=== PATIENT | male | born 1975 | race American Indian/Alaskan Native ===

== ENCOUNTER 2016-06-12 13:08 | Emergency (ER) | payer SELFPAY ==
[2016-06-12 14:04] VITALS: BP 140/87
[2016-06-12] MEDS ORDERED: TORADOL IM ONE (15:54)
--- NOTE | 2016-06-12 15:55 | Emergency Department Report ---
ED Upper Extremity Inj HPI - General Chief Complaint: Extremity Injury, Upper Stated Complaint: RT ARM INJURY Time Seen by Provider: 06/12/16 15:53 Source: patient Mode of arrival: Ambulatory Limitations: No Limitations - History of Present Illness Initial Comments: Patient reports while he was sitting in the physician waiting room the ceiling collapse striking him on his right shoulder. He denies LOC MD Complaint: Injury to:: right, shoulder Onset/Timin -: hour(s) Other Extremity Injury: Shoulder: Right Other Injuries: none Handedness: right Place: other (physician's office) Severity scale (0 -10): 8 Improves With: rest Worsens With: movement of extremity Context: direct blow Associated Symptoms: denies other symptoms. denies: weakness, numbness, neck pain, suspects foreign body, nausea/vomiting, heard/felt popping sensat Treatments Prior to Arrival: other (none) - Related Data Previous Rx's Medication Instructions Recorded Last Taken Type Ibuprofen [Motrin 800 MG tab] 800 mg PO Q8HR PRN #30 tablet 06/12/16 Unknown Rx Allergies Allergy/AdvReac Type Severity Reaction Status Date / Time No Known Allergies Allergy Verified 06/12/16 14:00 ED Review of Systems ROS: Stated complaint: RT ARM INJURY Other details as noted in HPI Respiratory: denies: cough, orthopnea, shortness of breath, SOB with exertion, SOB at rest, stridor, wheezing Cardiovascular: denies: chest pain, palpitations, dyspnea on exertion, orthopnea , edema, syncope, paroxysmal nocturnal dyspnea Gastrointestinal: denies: abdominal pain, nausea, vomiting, diarrhea, constipation Musculoskeletal: arthralgia (right shoulder). denies: back pain, joint swelling , myalgia Neurological: denies: headache, weakness, numbness, paresthesias, confusion, abnormal gait, vertigo Hematological/Lymphatic: denies: easy bleeding, easy bruising, swollen glands ED Past Medical Hx - Past Medical History Previous Medical History?: No - Surgical History Past Surgical History?: No - Social History Smoking Status: Never Smoker Substance Use Type: None - Medications Home Medications: Home Medications Medication Instructions Recorded Confirmed Last Taken Type Ibuprofen [Motrin 800 MG tab] 800 mg PO Q8HR PRN #30 tablet 06/12/16 Unknown Rx ED Physical Exam - General Limitations: No Limitations General appearance: alert, in no apparent distress - Head Head exam: Present: atraumatic - Eye Eye exam: Present: normal appearance Pupils: Present: normal accommodation - ENT ENT exam: Present: normal exam, mucous membranes moist - Neck Neck exam: Present: normal inspection, full ROM. Absent: tenderness, meningismus, lymphadenopathy, thyromegaly - Respiratory Respiratory exam: Present: normal lung sounds bilaterally. Absent: respiratory distress, wheezes, rales, rhonchi, stridor, chest wall tenderness, accessory muscle use - Cardiovascular Cardiovascular Exam: Present: regular rate, normal rhythm, normal heart sounds. Absent: systolic murmur, diastolic murmur, rubs, gallop, clicks, JVD, S3, S4 - GI/Abdominal GI/Abdominal exam: Present: soft, normal bowel sounds. Absent: distended, tenderness, guarding, rebound, rigid - Expanded Upper Extremity Exam Right Shoulder Exam: Present: normal inspection, full ROM, tenderness (with palpation) . Absent: swelling, abrasion, laceration, ecchymosis, crepidus, dislocation, erythema, tenderness over AC joint Upper Arm exam: Present: normal inspection, full ROM. Absent: tenderness, swelling, abrasion, laceration, ecchymosis, deformity, crepidus, dislocation, erythema Neuro motor exam: Present: wrist extension intact, thumb opposition intact, thumb IP flexion intact, thumb adduction intact, fingers 2-5 abduction intact Neurosensory exam: Present: 2-point discrimination, radial nerve intact, ulnar nerve intact, median nerve intact Vascular: Present: normal capillary refill, radial pulse (2+), brachial pulse (2 +), ulnar pulse (2+). Absent: vascular compromise, Pallo, pulse deficit radial art, pulse deficit ulnar art, pulse deficit brachial art - Back Exam Back exam: Present: normal inspection, full ROM. Absent: tenderness, CVA tenderness (R), CVA tenderness (L), muscle spasm, paraspinal tenderness, vertebral tenderness - Neurological Exam Neurological exam: Present: alert, oriented X3, CN II-XII intact, normal gait, reflexes normal. Absent: motor sensory deficit - Psychiatric Psychiatric exam: Present: normal affect, normal mood - Skin Skin exam: Present: warm, dry, intact, normal color. Absent: rash ED Course Vital Signs 06/12/16 13:56 Temperature 98.3 F Pulse Rate 88 Respiratory 17 Rate Blood Pressure 140/87 O2 Sat by Pulse 97 Oximetry - Reevaluation(s) Reevaluation #1: 06/12/16 16:04 radiology study and analgesic ordered ED Medical Decision Making - Radiology Data Radiology results: image reviewed RIGHT SHOULDER: Routine views demonstrate normal bony and soft tissue structures with normal joint alignment of the shoulder. IMPRESSION: Normal study. - Medical Decision Making During the course of ED, analgesic and radiology study were ordered. The imaging study revealed normal study. He was sent home with prescriptions for Ibuprofen, instructed to follow up with the selective referral given at discharge, he verbalized understanding - Differential Diagnosis Right Shoulder Pain, Right Shoulder Fracture Critical care attestation.: If time is entered above; I have spent that time in minutes in the direct care of this critically ill patient, excluding procedure time. ED Disposition Clinical Impression: Right shoulder pain Qualifiers: Chronicity: acute Qualified Code(s): M25.511 - Pain in right shoulder Disposition: DISCHARGED TO HOME OR SELFCARE Is pt being admited?: No Does the pt Need Aspirin: No Condition: Stable Instructions: Arthralgia (ED) Additional Instructions: Tale medication as directed. Follow up with the selective referral given at discharge Prescriptions: Ibuprofen [Motrin 800 MG tab] 800 mg PO Q8HR PRN #30 tablet PRN Reason: Pain Referrals: PRIMARY CAREMD [Primary Care Provider] - 3-5 Days JENIFFER BENTON MD [Staff Physician] - 3-5 Days Forms: Work/School Release Form(ED) Time of Disposition: 17:11
--- NOTE | 2016-06-12 16:51 | XRay Report ---
RIGHT SHOULDER: Routine views demonstrate normal bony and soft tissue structures with normal joint alignment of the shoulder. IMPRESSION: Normal study.
== END 2016-06-12 17:20 | disposition home or self-care (01) ==
LOC: ED 13:08
DX: M25.511 Pain in right shoulder (principal); W22.8XXA Striking against or struck by other objects, initial encounter; Y93.89 Activity, other specified; Y99.9 Unspecified external cause status; Y92.89 Other specified places as the place of occurrence of the external cause
CPT/HCPCS: 73030; 96372; 99283; J1885

== ENCOUNTER 2016-08-18 19:56 | Emergency (ER) | payer SELFPAY ==
[2016-08-18 20:21] VITALS: BP 148/85
[2016-08-18 20:37] LABS: Basophils % (Auto) 0.8 % (0.0-1.8); Eosinophils % (Auto) 3.9 % (0.0-4.3); Hematocrit 42.8 % (35.5-45.6); Hemoglobin 13.8 gm/dl (11.8-15.2); Mean Corpuscular HGB Conc 32 % (32-34); Mean Corpuscular Hemoglobin 26 pg (28-32); Mean Corpuscular Volume 80 fl (84-94); Platelet Count 311 K/mm3 (140-440); Red Blood Count 5.32 M/mm3 (3.65-5.03); Red Cell Distribution Width 14.1 % (13.2-15.2); White Blood Count 9.1 K/mm3 (4.5-11.0)
[2016-08-18 20:53] LABS: Anion Gap 19 mmol/L; Blood Urea Nitrogen 13 mg/dL (9-20); Carbon Dioxide 26 mmol/L (22-30); Chloride 103.8 mmol/L (98-107); Glucose 131 mg/dL (75-100); Potassium 4.3 mmol/L (3.6-5.0); Sodium 144 mmol/L (137-145)
--- NOTE | 2016-08-21 10:06 | ED Elopement Review ---
ED Pt Elopement review - Results review Lab results: Laboratory Tests 08/18/16 08/18/16 20:23 20:23 WBC 9.1 RBC 5.32 H Hgb 13.8 Hct 42.8 MCV 80 L MCH 26 L MCHC 32 RDW 14.1 Plt Count 311 Lymph % (Auto) 28.3 [place] % (Auto) 8.9 H Eos % (Auto) 3.9 Baso % (Auto) 0.8 Lymph # 2.6 [place] # 0.8 Eos # 0.4 Baso # 0.1 Seg Neutrophils % 58.1 Seg Neutrophils # 5.3 Sodium 144 Potassium 4.3 Chloride 103.8 Carbon Dioxide 26 Anion Gap 19 BUN 13 Creatinine 1.0 Estimated GFR > 60 BUN/Creatinine Ratio 13.00 Glucose 131 H Calcium 9.0 Troponin T < 0.010 - Call Back decision Pt Call Back Decision: No action required
== END 2016-08-18 22:15 | disposition left against medical advice (07) ==
LOC: ED 19:56
DX: R07.9 Chest pain, unspecified (principal); Z53.21 Procedure and treatment not carried out due to patient leaving prior to being seen by health care provider
CPT/HCPCS: 36415; 80048; 84484; 85025; 93005; 93010

== ENCOUNTER 2016-08-22 19:21 | Emergency (ER) | payer SELFPAY ==
[2016-08-22 20:23] LABS: Basophils % (Auto) 0.7 % (0.0-1.8); Eosinophils % (Auto) 2.6 % (0.0-4.3); Hematocrit 42.8 % (35.5-45.6); Hemoglobin 13.7 gm/dl (11.8-15.2); Mean Corpuscular HGB Conc 32 % (32-34); Mean Corpuscular Volume 80 fl (84-94); Platelet Count 337 K/mm3 (140-440); Red Blood Count 5.33 M/mm3 (3.65-5.03); Red Cell Distribution Width 14.1 % (13.2-15.2); White Blood Count 11.6 K/mm3 (4.5-11.0)
[2016-08-22 20:30] LABS: Anion Gap 19 mmol/L; BUN/Creatinine Ratio 12.22; Blood Urea Nitrogen 11 mg/dL (9-20); Calcium 9.1 mg/dL (8.4-10.2); Carbon Dioxide 25 mmol/L (22-30); Chloride 103.6 mmol/L (98-107); Glucose 87 mg/dL (75-100); Sodium 144 mmol/L (137-145)
[2016-08-22 20:40] LABS: Mean Corpuscular Hemoglobin 26 pg (28-32)
[2016-08-23] MEDS ORDERED: ROBITUSSIN AC PO ONE (04:15)
[2016-08-23] MEDS ORDERED: DUONEB 0.5 MG-3 MG/3 ML SOLN IH ONE (04:15)
--- NOTE | 2016-08-23 06:20 | Emergency Department Report ---
ED General Adult HPI - General Chief complaint: Chest Pain Stated complaint: CHEST PAIN/COUGH Time Seen by Provider: 08/23/16 06:15 Source: patient Mode of arrival: Ambulatory Limitations: No Limitations - History of Present Illness Initial comments: Patient presents with a history of cough productive of INTERMITTENT YELLOW SPUTUM FOR THE PAST 2 WEEKS HE STATES HE OCCASIONALLY WHEEZES. HE STATES THE SUBSTERNAL AREA OF HIS CHEST IS SORE WHEN HE COUGHS. He denies fever or chills. He denies any leg swelling or pain or recent travel. He is not suffering from chest pain at this time. He states he is given a neb prior to my arrival in the emergency department which was of benefit. He does not have a history of asthma or COPD. At this time he sitting in a chair he is asymptomatic. He denies chest pain. -: week(s) Location: chest Radiation: non-radiation Severity scale (0 -10): 6 Quality: aching Consistency: intermittent Improves with: none Worsens with: none Associated Symptoms: other - Related Data Previous Rx's Medication Instructions Recorded Last Taken Type Ibuprofen [Motrin 800 MG tab] 800 mg PO Q8HR PRN #30 tablet 06/12/16 Unknown Rx Albuterol Sulfate [Ventolin HFA] 2 puff IH Q4H PRN #1 hfa.aer.ad 08/23/16 Unknown Rx Azithromycin [Zithromax Z-CARLOS MANUEL] 250 mg PO DAILY #6 tablet 08/23/16 Unknown Rx Benzonatate [Tessalon Perles] 100 mg PO Q8HR #14 capsule 08/23/16 Unknown Rx amLODIPine [Norvasc] 5 mg PO DAILY #30 tab 08/23/16 Unknown Rx Allergies Allergy/AdvReac Type Severity Reaction Status Date / Time No Known Allergies Allergy Verified 06/12/16 14:00 ED Review of Systems ROS: Stated complaint: CHEST PAIN/COUGH Other details as noted in HPI Constitutional: denies: chills, fever Eyes: denies: eye pain, eye discharge, vision change ENT: denies: ear pain, throat pain Respiratory: cough. denies: shortness of breath, wheezing Cardiovascular: chest pain. denies: palpitations Endocrine: no symptoms reported Gastrointestinal: denies: abdominal pain, nausea, diarrhea Genitourinary: denies: urgency, dysuria Musculoskeletal: denies: back pain, joint swelling, arthralgia Skin: denies: rash, lesions Neurological: denies: headache, weakness, paresthesias Psychiatric: denies: anxiety, depression Hematological/Lymphatic: denies: easy bleeding, easy bruising ED Past Medical Hx - Past Medical History Previous Medical History?: No Hx Hypertension: Yes - Surgical History Past Surgical History?: No - Social History Smoking Status: Never Smoker Substance Use Type: None - Medications Home Medications: Home Medications Medication Instructions Recorded Confirmed Last Taken Type Ibuprofen [Motrin 800 MG tab] 800 mg PO Q8HR PRN #30 tablet 06/12/16 Unknown Rx Albuterol Sulfate [Ventolin HFA] 2 puff IH Q4H PRN #1 hfa.aer.ad 08/23/16 Unknown Rx Azithromycin [Zithromax Z-CARLOS MANUEL] 250 mg PO DAILY #6 tablet 08/23/16 Unknown Rx Benzonatate [Tessalon Perles] 100 mg PO Q8HR #14 capsule 08/23/16 Unknown Rx amLODIPine [Norvasc] 5 mg PO DAILY #30 tab 08/23/16 Unknown Rx ED Physical Exam - General Limitations: No Limitations General appearance: alert, in no apparent distress - Head Head exam: Present: atraumatic, normocephalic - Eye Eye exam: Present: normal appearance. Absent: scleral icterus - ENT ENT exam: Present: mucous membranes moist - Neck Neck exam: Present: normal inspection - Respiratory Respiratory exam: Present: normal lung sounds bilaterally. Absent: respiratory distress - Cardiovascular Cardiovascular Exam: Present: regular rate, normal rhythm. Absent: systolic murmur, diastolic murmur, rubs, gallop - GI/Abdominal GI/Abdominal exam: Present: soft, normal bowel sounds. Absent: distended, tenderness, guarding, rebound, rigid - Rectal Rectal exam: Present: deferred - Extremities Exam Extremities exam: Present: normal inspection - Back Exam Back exam: Present: normal inspection - Neurological Exam Neurological exam: Present: alert, oriented X3, CN II-XII intact. Absent: motor sensory deficit - Psychiatric Psychiatric exam: Present: normal affect, normal mood - Skin Skin exam: Present: warm, dry, intact, normal color. Absent: rash ED Course Vital Signs 08/22/16 08/23/16 08/23/16 19:43 02:05 03:40 Temperature 98.6 F 98.7 F 98.3 F Pulse Rate 96 H 98 H 109 H Pulse Rate [ Posterior Bilateral] Respiratory 20 18 16 Rate Respiratory Rate [Posterior Bilateral] Blood Pressure 158/104 163/101 Blood Pressure 158/104 199/96 [Right] O2 Sat by Pulse 95 98 98 Oximetry 08/23/16 08/23/16 08/23/16 05:30 05:43 06:35 Temperature 97.9 F Pulse Rate 102 H Pulse Rate [ 105 H 102 H Posterior Bilateral] Respiratory 14 Rate Respiratory 18 18 Rate [Posterior Bilateral] Blood Pressure Blood Pressure 173/95 [Right] O2 Sat by Pulse 92 Oximetry ED Medical Decision Making - Lab Data Result diagrams: 08/22/16 19:59 08/22/16 19:59 Laboratory Results - last 24 hr 08/22/16 08/22/16 08/22/16 19:59 19:59 23:11 WBC 11.6 H RBC 5.33 H Hgb 13.7 Hct 42.8 MCV 80 L MCH 26 L MCHC 32 RDW 14.1 Plt Count 337 Lymph % (Auto) 29.6 [place] % (Auto) 8.7 H Eos % (Auto) 2.6 Baso % (Auto) 0.7 Lymph # 3.4 [place] # 1.0 H Eos # 0.3 Baso # 0.1 Seg Neutrophils % 58.4 Seg Neutrophils # 6.8 Sodium 144 Potassium 4.0 Chloride 103.6 Carbon Dioxide 25 Anion Gap 19 BUN 11 Creatinine 0.9 Estimated GFR > 60 BUN/Creatinine Ratio 12.22 Glucose 87 Calcium 9.1 Troponin T < 0.010 < 0.010 08/23/16 02:11 WBC RBC Hgb Hct MCV MCH MCHC RDW Plt Count Lymph % (Auto) [place] % (Auto) Eos % (Auto) Baso % (Auto) Lymph # [place] # Eos # Baso # Seg Neutrophils % Seg Neutrophils # Sodium Potassium Chloride Carbon Dioxide Anion Gap BUN Creatinine Estimated GFR BUN/Creatinine Ratio Glucose Calcium Troponin T < 0.010 - EKG Data -: EKG Interpreted by Me EKG shows normal: sinus rhythm, axis, intervals, QRS complexes, ST-T waves Rate: normal - EKG Data Interpretation: no acute changes - Radiology Data interpreted by me: CXR NAF Critical care attestation.: If time is entered above; I have spent that time in minutes in the direct care of this critically ill patient, excluding procedure time. ED Disposition Clinical Impression: Acute bronchitis Qualifiers: Bronchitis organism: unspecified organism Qualified Code(s): J20.9 - Acute bronchitis, unspecified Reactive airway disease Qualifiers: Asthma severity: mild intermittent Asthma complication type: uncomplicated Qualified Code(s): J45.20 - Mild intermittent asthma, uncomplicated Chest pain Qualifiers: Chest pain type: unspecified Qualified Code(s): R07.9 - Chest pain, unspecified Hypertension Qualifiers: Hypertension type: essential hypertension Qualified Code(s): I10 - Essential ( primary) hypertension Disposition: TO HOME OR SELFCARE Is pt being admited?: No Does the pt Need Aspirin: No Condition: Stable Instructions: Acute Bronchitis (ED), Chest Pain (ED), Noncardiac Chest Pain (ED ), Hypertension (ED) Additional Instructions: Return any acute change or problem. Follow-up with the primary care provider. Rx as directed. Prescriptions: Albuterol Sulfate [Ventolin HFA] 2 puff IH Q4H PRN #1 hfa.aer.ad PRN Reason: Shortness Of Breath amLODIPine [Norvasc] 5 mg PO DAILY #30 tab Azithromycin [Zithromax Z-CARLOS MANUEL] 250 mg PO DAILY #6 tablet Benzonatate [Tessalon Perles] 100 mg PO Q8HR #14 capsule Referrals: PRIMARY CARE, [Primary Care Provider] - 3-5 Days Time of Disposition: 06:52
[2016-08-23 06:36] VITALS: BP 173/95
--- NOTE | 2016-08-23 07:18 | XRay Report ---
ROUTINE CHEST, TWO VIEWS: HISTORY: chest pain. The trachea, heart, mediastinal contour, lung gracia and bony thorax are unremarkable. No change since 02/07/16. IMPRESSION: Unremarkable chest x-ray.
== END 2016-08-23 07:03 | disposition home or self-care (01) ==
LOC: ED 19:21
DX: J20.9 Acute bronchitis, unspecified (principal); J45.20 Mild intermittent asthma, uncomplicated; R07.9 Chest pain, unspecified; I10 Essential (primary) hypertension
CPT/HCPCS: 36415; 71020; 80048; 84484; 85025; 93005; 93010; 94640; 99285